=== PATIENT | female | born 1960 | race Caucasian/White ===

== ENCOUNTER 2024-04-10 17:16 | Emergency (ER) | payer MEDICAID, SELFPAY ==
[2024-04-10] VITALS (23 sets, daily range): BP systolic 86–133; BP diastolic 49–78; PULSE 70–90; RESP 13–24; TEMP 36.4; O2SAT 93–99
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
[2024-04-10] MEDS: morphine 4 mg/mL SDV 1 mL IVP (17:35)
[2024-04-10] MEDS: ondansetron 2 mg/ML SDV 2 mL 4 MG IVP (17:35)
[2024-04-10 17:36] LABS: Basophils % 0.2 %; Eosinophils # 0.1 10^3/uL (0.0-0.8); Eosinophils % 0.9 %; Hematocrit 35.5 % (36-47); Lymphocytes # 1.1 10^3/uL (0.8-4.8); Lymphocytes % 11.4 %; Mean Corpuscular HGB Conc 32.7 g/dL (30-55); Mean Corpuscular Hemoglobin 27.2 pg (27-33); Mean Corpuscular Volume 83.1 fl (85-98); Mean Platelet Volume 10.9 fL (7.4-10.4); Monocytes # 0.7 10^3/uL (0.2-0.9); Monocytes % 7.3 %; Neutrophils % 79.4 %; Nucleated Red Blood Cells % 0 %; Platelet Count 197 10^3/cmm (157-399); Red Blood Count 4.27 10^6/uL (3.85-5.65); Red Cell Distribution Width 14.3 % (12.1-15.1); White Blood Count 9.58 10^3/uL (3.29-11.43)
[2024-04-10 17:41] LABS: ABG PCO2 28.5 mmHg (35-45); Alveolar-Arterial Oxygen Gradi 1.8 mmHg (5-10); Arterial Blood Gas Hematocrit 34.8 % (37-47); Base Excess ABG -6.1 mmol/L (-2.0-2.0); Blood Gas Allen Test Pos; Blood Gas Operator Identificat MONRO; Blood Gas Sample Site Radial, right; Blood Gas Sample Type Arterial; Carboxyhemoglobin 0.9 %THgb (0.4-20.1); HCO3 ABG 17.6 mmol/L (22-26); HGB O2 Sat 97.1 % (95-100); Ionized Calcium Level - ABG 1.2 mmol/L (1.1-1.4); Methemoglobin 0.1 % (0.4-1.5); Oxygen Device ROOM AIR; PO2 ABG 98.6 mmHg (80.0-100.0); PO2 FiO2 Ratio Arterial Blood 469; Potassium Level - ABG 4.6 mmol/L (3.5-5.0); Total Hemoglobin 11.3 g/dL (12-16)
[2024-04-10 17:45] LABS: Ketone (Acetest) Serum Negative (Negative)
--- NOTE | 2024-04-10 17:48 | ECG_ITS ---
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
[2024-04-10 18:00] LABS: Alanine Aminotransferase 30 U/L (0-33); Albumin Level 4.2 g/dL (3.5-5.2); Alkaline Phosphatase 53 U/L (35-105); Anion Gap 21.7 (5-19); Aspartate Amino Transferase 28 U/L (0-32); Blood Urea Nitrogen 32 mg/dL (8-23); Calcium 9.9 mg/dL (8.5-10.5); Carbon Dioxide 20 mmol/L (22-29); Chloride 95 mmol/L (98-107); Globulin 3.5 g/dL (1.3-4.6); Osmolality Calculated 304 mOsm/kg (285-295); Potassium 4.7 mmol/L (3.5-5.1); Sodium 132 mmol/L (136-145); Total Bilirubin 0.4 mg/dL (0.15-1.2); Total Protein 7.7 g/dL (6.6-8.7)
[2024-04-10] MEDS: albuterol 2.5 mg/3 mL Neb INHALATION (18:03)
[2024-04-10 18:07] LABS: Glucose 518 mg/dL (65-115)
[2024-04-10] MEDS: sodium chloride 0.9% 1,000 ML 999 ML IV ×2 (19:14→21:12)
[2024-04-10] MEDS: tetanus-dipt-pertussis 0.5 mL SDV IM (19:14)
[2024-04-10] MEDS: insulin regular-human 100 units/1 mL 10 UNIT IVP (19:15)
[2024-04-10 20:10] LABS: Glucose Point of Care 459 mg/dL (70-110)
[2024-04-10 21:02] LABS: NT Pro B Type Natriuretic Pept 629 pg/mL (0-125)
[2024-04-10] MEDS: insulin regular-human 100 units/1 mL 7 UNIT IVP (21:09)
[2024-04-10 21:17] LABS: Glucose Point of Care 395 mg/dL (70-110)
[2024-04-10] MEDS: morphine 4 mg/mL SDV 1 mL 2 MG IVP (22:05)
[2024-04-10] MEDS: oxyCODONE-APAP 10-325 mg Tablet 1 TAB PO (22:06)
[2024-04-10 22:15] LABS: Glucose Point of Care 318 mg/dL (70-110)
[2024-04-11] VITALS: BP 107/61; PULSE 81; RESP 19; O2SAT 97
== END 2024-04-11 00:40 | disposition home or self-care (01) ==
PROVIDERS: Family Medicine; Emergency Provider Emergency Medicine; PCP Nurse Practitioner
DX: S71.132A Puncture wound without foreign body, left thigh, initial encounter (principal); W19.XXXA Unspecified fall, initial encounter; R73.9 Hyperglycemia, unspecified
CPT/HCPCS: 36416; 36600; 71045; 73562; 80051; 80053; 82009; 82330; 82805; 82962; 83880; 85025; 90471; 90715; 93005; 94640; 96374; 96375; 96376; 99285; J1815; J2270; J2405; J7030; J7613